=== PATIENT | female | born 1995 | race Two or more races ===

== ENCOUNTER → 2021-08-26 | Outpatient (REF) | payer OTHER | LOC: M WUC 12:04 | PROVIDERS: ATTEND Student in an Organized Health Care Education/Training Program | DX: J02.9 Acute pharyngitis, unspecified (principal) ==

== ENCOUNTER 2021-08-31 12:05 | Emergency (ER) | payer OTHER ==
[~2021-08-31] VITALS: Ht 167.6 cm; Wt 79.5 kg
[2021-08-31 14:54] LABS: BASO % 0.2 % (0.0-1.0); EOS % 0.2 % (0.0-3.0); HEMATOCRIT 38.6 % (36.0-47.0); HEMOGLOBIN 13.5 g/dl (12.0-15.5); LYMPH # 1.5 10^3/uL (1.5-5.0); LYMPH % 11.8 % (24.0-44.0); MEAN CORPUSCULAR HEMOGLOBIN 31.9 pg (27.0-33.0); MEAN CORPUSCULAR VOLUME 91.3 fl (80.0-96.0); MONO # 0.1 10^3/uL (0.0-0.8); NEUTROPHILS # 10.5 10^3/uL (1.5-8.5); PLATELET COUNT, AUTOMATED 289 10^3/uL (150-450); RED BLOOD COUNT 4.23 10^6/uL (4.00-5.40); WHITE BLOOD COUNT 12.2 10^3/uL (4.0-10.0)
[2021-08-31 15:15] LABS: BLOOD UREA NITROGEN 7 MG/DL (7-18); CALCIUM LEVEL 8.9 MG/DL (8.5-10.1); CARBON DIOXIDE LEVEL 26 MEQ/L (21-32); CHLORIDE LEVEL 108 MEQ/L (98-107); CREATININE FOR GFR 0.67 MG/DL (0.55-1.30); GLOMERULAR FILTRATION RATE > 60.0 (>60); GLUCOSE, FASTING 106 MG/DL (70-100); POTASSIUM SERUM 3.5 MEQ/L (3.5-5.1); SODIUM LEVEL 141 MEQ/L (136-145)
[2021-08-31] MEDS ORDERED: MEDR4PAK PO (15:57)
[2021-08-31 16:21] VITALS: BP 137/85
== END 2021-08-31 16:37 | disposition home or self-care (01) ==
LOC: M ED 12:05 → EDBD 12:05 → M ED 16:37
DX: J45.901 Unspecified asthma with (acute) exacerbation (principal)

== ENCOUNTER → 2021-12-31 | Outpatient (CLI) | payer OTHER ==
[~2021-12-31] MED LIST: MEDR4PAK PO
== END ==
LOC: M WUC 11:17
PROVIDERS: ATTEND Physician Assistant
DX: S93.602A Unspecified sprain of left foot, initial encounter (principal); X58.XXXA Exposure to other specified factors, initial encounter

== ENCOUNTER 2022-03-03 17:46 | Outpatient (CLI) | payer OTHER ==
[~2022-03-03] VITALS: Ht 167.6 cm; Wt 87.8 kg
[2022-03-03 18:09] VITALS: BP 131/74
[2022-03-03] MEDS ORDERED: PRENTAB9 PO (18:14)
[2022-03-03] MEDS ORDERED: ACET-897 PO (18:14)
[2022-03-03] MEDS ORDERED: ASPI81CH33 PO (18:15)
[2022-03-03] MEDS ORDERED: ONDA4TAB6 PO (18:15)
[2022-03-03 18:36] VITALS: BP 133/78
[2022-03-03] MEDS ORDERED: METOCLOPRAMIDE 10MG TAB PO ONE (18:45)
[2022-03-03] MEDS ORDERED: diphenhydrAMINE 25MG CAP PO ONE (18:45)
[2022-03-03] MEDS ORDERED: HOME MED LIST COMPLETE! XX SCH (18:55)
[2022-03-03 18:56] LABS: TOTAL PROTEIN,RANDOM URINE 21.2 MG/DL (0.0-14.0)
[2022-03-03 18:58] LABS: URIC ACID 2.6 MG/DL (3.1-7.8)
[2022-03-03 19:00] LABS: CREATININE,RANDOM URINE 136.7 MG/DL
[2022-03-03 19:02] LABS: ALBUMIN 2.8 G/DL (3.2-5.2); ALKALINE PHOSPHATASE 73 U/L (46-116); ALT/SGPT 12 U/L (7.0-40); AST/SGOT 11 U/L (<34); BILIRUBIN,TOTAL 0.2 MG/DL (0.3-1.2); BLOOD UREA NITROGEN 9 MG/DL (9-23); CALCIUM LEVEL 8.9 MG/DL (8.5-10.1); CARBON DIOXIDE LEVEL 22 MMOL/L (20-31); CHLORIDE LEVEL 105 MMOL/L (98-107); CREATININE FOR GFR 0.42 MG/DL (0.55-1.30); GLOMERULAR FILTRATION RATE > 60.0 (>60); GLUCOSE, FASTING 103 MG/DL (60-100); POTASSIUM SERUM 3.7 MMOL/L (3.5-5.1); SODIUM LEVEL 137 MMOL/L (136-145); TOTAL PROTEIN 6.4 G/DL (5.7-8.2)
[2022-03-03] MEDS ORDERED: FIORICET TAB PO ONE (19:45)
[2022-03-03] MEDS ORDERED: ONDANSETRON 4MG TAB PO ONE (19:45)
== END 2022-03-03 22:00 | disposition home or self-care (01) ==
LOC: M LDO 17:46
PROVIDERS: ATTEND Obstetrics & Gynecology
DX: O26.892 Other specified pregnancy related conditions, second trimester (principal); R51.9 Headache, unspecified; Z3A.22 22 weeks gestation of pregnancy; Z87.59 Personal history of other complications of pregnancy, childbirth and the puerperium; Z79.82 Long term (current) use of aspirin; Z79.899 Other long term (current) drug therapy
CPT/HCPCS: 36415; 59025; 76815; 80053; 82570; 84156; 84550; G0378; G0463

== ENCOUNTER 2022-05-03 20:34 | Outpatient (CLI) | payer OTHER ==
[~2022-05-03] VITALS: Ht 167.6 cm; Wt 93.7 kg
[~2022-05-03 20:34] MED LIST changes: +ACET-897 PO; +ASPI81CH33 PO; +ONDA4TAB6 PO; +PRENTAB9 PO
[2022-05-03 20:57] VITALS: BP 142/91
[2022-05-03] MEDS ORDERED: FOLTTAB9 PO (21:10)
[2022-05-03] MEDS ORDERED: GNP250TA9 PO (21:10)
[2022-05-03] MEDS ORDERED: HOME MED LIST COMPLETE! XX SCH (21:15)
[2022-05-03 21:20] LABS: APPEARANCE, URINE CLOUDY (CLEAR); BACTERIA, URINE AUTO 2+ (NEGATIVE); BILIRUBIN, URINE AUTO NEGATIVE (NEGATIVE); BLOOD, URINE BLOOD NEGATIVE (NEGATIVE); COLOR, URINE YELLOW (YELLOW); GLUCOSE, URINE (UA) AUTO NEGATIVE (NEGATIVE); KETONE, URINE AUTO TRACE mg/dL (NEGATIVE); LEUKOCYTE ESTERASE, URINE AUTO 3+ (NEGATIVE); MUCUS, URINE SMALL (NEGATIVE); NITRITE, URINE AUTO NEGATIVE (NEGATIVE); PROTEIN, URINE AUTO 1+ mg/dL (NEGATIVE); RBC, URINE AUTO 3 /HPF (0-3); SPECIFIC GRAVITY URINE AUTO 1.027 (1.002-1.035); SQUAMOUS EPITHELIAL CELL UR AU 54 /HPF (0-6); WBC, URINE AUTO 134 /HPF (0-3)
[2022-05-03 21:34] LABS: TOTAL PROTEIN,RANDOM URINE 42.7 MG/DL (0.0-14.0)
[2022-05-03 21:38] LABS: CREATININE,RANDOM URINE 163.4 MG/DL
[2022-05-03 21:47] LABS: HEMATOCRIT 31.4 % (36.0-47.0); HEMOGLOBIN 10.7 g/dl (12.0-15.5); MEAN CORPUSCULAR HEMOGLOBIN 30.8 pg (27.0-33.0); MEAN CORPUSCULAR HGB CONC 34.1 g/dl (32.0-36.5); MEAN CORPUSCULAR VOLUME 90.5 fl (80.0-96.0); PLATELET COUNT, AUTOMATED 286 10^3/uL (150-450); RED BLOOD COUNT 3.47 10^6/uL (4.00-5.40); WHITE BLOOD COUNT 11.3 10^3/uL (4.0-10.0)
[2022-05-03 21:54] VITALS: BP 133/76
[2022-05-03 21:57] LABS: URIC ACID 2.8 MG/DL (3.1-7.8)
[2022-05-03 21:59] LABS: LDH LACTATE DEHYDROGENASE 155 U/L (120-246)
[2022-05-03 22:00] LABS: ALBUMIN 2.6 G/DL (3.2-5.2); ALKALINE PHOSPHATASE 94 U/L (46-116); ALT/SGPT 16 U/L (7.0-40); AST/SGOT 13 U/L (<34); BILIRUBIN,TOTAL 0.2 MG/DL (0.3-1.2); BLOOD UREA NITROGEN 7 MG/DL (9-23); CALCIUM LEVEL 8.8 MG/DL (8.5-10.1); CARBON DIOXIDE LEVEL 22 MMOL/L (20-31); CHLORIDE LEVEL 109 MMOL/L (98-107); CREATININE FOR GFR 0.41 MG/DL (0.55-1.30); GLOMERULAR FILTRATION RATE > 60.0 (>60); GLUCOSE, FASTING 101 MG/DL (60-100); POTASSIUM SERUM 3.7 MMOL/L (3.5-5.1); SODIUM LEVEL 140 MMOL/L (136-145)
[2022-05-03] MEDS ORDERED: MAALOX 30 ML SUSP *UDC PO ONE (22:15)
== END 2022-05-03 22:31 | disposition home or self-care (01) ==
LOC: M LDO 20:34
PROVIDERS: ATTEND Obstetrics & Gynecology
DX: O26.893 Other specified pregnancy related conditions, third trimester (principal); Z3A.31 31 weeks gestation of pregnancy; R10.11 Right upper quadrant pain; O32.1XX0 Maternal care for breech presentation, not applicable or unspecified; O99.613 Diseases of the digestive system complicating pregnancy, third trimester; K80.20 Calculus of gallbladder without cholecystitis without obstruction; Z87.59 Personal history of other complications of pregnancy, childbirth and the puerperium; Z91.030 Bee allergy status
CPT/HCPCS: 36415; 59025; 80053; 81001; 82570; 83615; 84156; 84550; 85027; 87086; G0463

== ENCOUNTER 2022-05-19 13:05 | Outpatient (CLI) | payer OTHER ==
[~2022-05-19] VITALS: Ht 167.6 cm; Wt 96.2 kg
[~2022-05-19 13:05] MED LIST changes: +FOLTTAB9 PO; +GNP250TA9 PO
[2022-05-19 13:34] VITALS: BP 141/85
[2022-05-19 14:08] VITALS: BP 138/79
[2022-05-19 15:07] LABS: HEMATOCRIT 32.6 % (36.0-47.0); HEMOGLOBIN 10.9 g/dl (12.0-15.5); MEAN CORPUSCULAR HEMOGLOBIN 30.6 pg (27.0-33.0); MEAN CORPUSCULAR HGB CONC 33.4 g/dl (32.0-36.5); MEAN CORPUSCULAR VOLUME 91.6 fl (80.0-96.0); PLATELET COUNT, AUTOMATED 287 10^3/uL (150-450); RED BLOOD COUNT 3.56 10^6/uL (4.00-5.40); WHITE BLOOD COUNT 11.8 10^3/uL (4.0-10.0)
[2022-05-19 15:12] VITALS: BP 136/83
[2022-05-19 15:18] LABS: TOTAL PROTEIN,RANDOM URINE 13.9 MG/DL (0.0-14.0)
[2022-05-19 15:23] LABS: URIC ACID 3.2 MG/DL (3.1-7.8)
[2022-05-19 15:23] LABS: CREATININE,RANDOM URINE 68.9 MG/DL
[2022-05-19 15:25] LABS: LDH LACTATE DEHYDROGENASE 153 U/L (120-246)
[2022-05-19 15:26] LABS: ALT/SGPT 33 U/L (7.0-40); AST/SGOT 19 U/L (<34); BILIRUBIN,TOTAL 0.2 MG/DL (0.3-1.2); CREATININE FOR GFR 0.46 MG/DL (0.55-1.30); GLOMERULAR FILTRATION RATE > 60.0 (>60)
[2022-05-19 16:08] VITALS: BP 139/82
== END 2022-05-19 16:15 | disposition home or self-care (01) ==
LOC: M LDO 13:05
PROVIDERS: ATTEND Obstetrics & Gynecology
DX: O26.893 Other specified pregnancy related conditions, third trimester (principal); R03.0 Elevated blood-pressure reading, without diagnosis of hypertension; O99.613 Diseases of the digestive system complicating pregnancy, third trimester; Z3A.33 33 weeks gestation of pregnancy

== ENCOUNTER 2022-05-25 18:24 | Outpatient (CLI) | payer OTHER ==
[~2022-05-25] VITALS: Ht 167.6 cm; Wt 95.0 kg
[2022-05-25] MEDS ORDERED: HOME MED LIST COMPLETE! XX SCH (18:55)
[2022-05-25 18:56] VITALS: BP 119/70
[2022-05-25 19:37] VITALS: BP 118/70
[2022-05-25] MEDS ORDERED: diphenhydrAMINE 50MG/ML VIAL IV ONE (19:45)
[2022-05-25] MEDS ORDERED: METOCLOPRAMIDE 10MG TAB PO ONE (19:45)
[2022-05-25] MEDS ORDERED: diphenhydrAMINE 50MG CAP PO ONE (19:55)
[2022-05-25 20:39] VITALS: BP 131/80
[2022-05-25 21:23] VITALS: BP 142/87
[2022-05-25] MEDS ORDERED: ACETAMINOPHEN 500 MG TAB PO ONE (22:00)
[2022-05-25] MEDS ORDERED: ONDANSETRON 4MG TAB PO ONE (22:00)
[2022-05-25 22:53] LABS: HEMATOCRIT 35.9 % (36.0-47.0); HEMOGLOBIN 11.7 g/dl (12.0-15.5); MEAN CORPUSCULAR HEMOGLOBIN 29.8 pg (27.0-33.0); MEAN CORPUSCULAR HGB CONC 32.6 g/dl (32.0-36.5); MEAN CORPUSCULAR VOLUME 91.3 fl (80.0-96.0); PLATELET COUNT, AUTOMATED 311 10^3/uL (150-450); RED BLOOD COUNT 3.93 10^6/uL (4.00-5.40); WHITE BLOOD COUNT 14.3 10^3/uL (4.0-10.0)
[2022-05-25] MEDS ORDERED: oxyCODONE 5MG TAB PO ONE (23:00)
[2022-05-25 23:04] LABS: TOTAL PROTEIN,RANDOM URINE 35.3 MG/DL (0.0-14.0)
[2022-05-25 23:09] LABS: CREATININE,RANDOM URINE 190.8 MG/DL
[2022-05-25 23:13] LABS: URIC ACID 3.9 MG/DL (3.1-7.8)
[2022-05-25 23:15] LABS: LDH LACTATE DEHYDROGENASE 147 U/L (120-246)
[2022-05-25 23:16] LABS: ALT/SGPT 26 U/L (7.0-40); AST/SGOT 13 U/L (<34); BILIRUBIN,TOTAL 0.2 MG/DL (0.3-1.2); CREATININE FOR GFR 0.52 MG/DL (0.55-1.30); GLOMERULAR FILTRATION RATE > 60.0 (>60)
[2022-05-26] MEDS ORDERED: oxyCODONE 5MG TAB As Ordered ONE (01:07)
[2022-05-26 01:09] VITALS: BP 117/65
[2022-05-26 05:37] VITALS: BP 132/68
[2022-05-26 10:12] VITALS: BP 133/78
[2022-05-26 11:33] VITALS: BP 142/76
[2022-05-26 12:20] VITALS: BP 125/72
== END 2022-05-26 14:22 | disposition home or self-care (01) ==
LOC: M LDO 18:24
PROVIDERS: ATTEND Advanced Practice Midwife
DX: O26.893 Other specified pregnancy related conditions, third trimester (principal); R03.0 Elevated blood-pressure reading, without diagnosis of hypertension; R51.0 Headache with orthostatic component, not elsewhere classified; O99.343 Other mental disorders complicating pregnancy, third trimester; F32.A Depression, unspecified; Z87.59 Personal history of other complications of pregnancy, childbirth and the puerperium; Z3A.34 34 weeks gestation of pregnancy
CPT/HCPCS: 36415; 59025; 76815; 81001; 82247; 82565; 82570; 83615; 84156; 84450; 84460; 84550; 85027; 87086; G0463

== ENCOUNTER → 2022-06-01 | Outpatient (REF) | payer OTHER | LOC: M PLALAB 13:40 | PROVIDERS: ATTEND Advanced Practice Midwife | DX: Z36.85 Encounter for antenatal screening for Streptococcus B (principal); Z3A.36 36 weeks gestation of pregnancy | CPT/HCPCS: 59025; 87081; G0463 ==

== ENCOUNTER → 2022-06-03 | Outpatient (CLI) | payer OTHER | LOC: M RAD 14:53 | PROVIDERS: ATTEND Advanced Practice Midwife | DX: O13.3 Gestational [pregnancy-induced] hypertension without significant proteinuria, third trimester (principal) ==

== ENCOUNTER 2022-06-09 20:11 | Outpatient (CLI) | payer OTHER ==
[~2022-06-09] VITALS: Ht 167.6 cm; Wt 98.6 kg
[2022-06-09 20:25] VITALS: BP 136/86
== END 2022-06-09 21:45 | disposition home or self-care (01) ==
LOC: M LDO 20:11
PROVIDERS: ATTEND Specialist
DX: O36.8130 Decreased fetal movements, third trimester, not applicable or unspecified (principal); Z3A.36 36 weeks gestation of pregnancy

== ENCOUNTER 2022-06-15 15:17 | Inpatient (IN) | payer OTHER ==
[~2022-06-15] VITALS: Ht 167.6 cm; Wt 97.5 kg
[2022-06-15] MEDS ORDERED: HOME MED LIST COMPLETE! XX SCH (15:35)
[2022-06-15 15:37] VITALS: BP 121/68
[2022-06-15] MEDS ORDERED: LIDOCAINE 1% MDV 20ML VIAL INFIL PRN (16:00)
[2022-06-15] MEDS ORDERED: OXYTOCIN INJ 10UNITS/ML 1ML VIAL IM PRN (16:00)
[2022-06-15] MEDS ORDERED: OXYTOCIN DRIP 30 UNITS in IV 1 EA IV PRN ×4 (16:00)
[2022-06-15] MEDS ORDERED: TRANEXAMIC ACID INJection 1,000 MG in NS 100 ML IV PRN (16:00)
[2022-06-15] MEDS ORDERED: CARBOPROST TROMETHAMINE 250 MCG/ML AMP IM PRN (16:00)
[2022-06-15] MEDS: miSOPROStol 50MCG 1/2 TABLET PO SCH ×2 (16:08→20:29)
[2022-06-15 16:10] VITALS: BP 129/64
[2022-06-15 16:15] LABS: HEMATOCRIT 33.9 % (36.0-47.0); HEMOGLOBIN 11.2 g/dl (12.0-15.5); MEAN CORPUSCULAR HEMOGLOBIN 29.5 pg (27.0-33.0); MEAN CORPUSCULAR VOLUME 89.2 fl (80.0-96.0); PLATELET COUNT, AUTOMATED 326 10^3/uL (150-450); WHITE BLOOD COUNT 10.4 10^3/uL (4.0-10.0)
[2022-06-15 16:43] LABS: URIC ACID 4.2 MG/DL (3.1-7.8)
[2022-06-15 16:45] LABS: LDH LACTATE DEHYDROGENASE 172 U/L (120-246)
[2022-06-15 16:46] LABS: ALT/SGPT 21 U/L (7.0-40); AST/SGOT 19 U/L (<34); BILIRUBIN,TOTAL 0.2 MG/DL (0.3-1.2); CREATININE FOR GFR 0.48 MG/DL (0.55-1.30); GLOMERULAR FILTRATION RATE > 60.0 (>60)
[2022-06-15 17:22] VITALS: BP 122/68
[2022-06-15 18:24] VITALS: BP 122/70
[2022-06-15 19:04] VITALS: BP 124/60
[2022-06-15 19:59] VITALS: BP 127/69
[2022-06-15] MEDS ORDERED: OXYTOCIN DRIP 30 UNITS in IV 1 EA IV SCH (23:25)
[2022-06-16] VITALS (46 sets, daily range): BP systolic 106–158; BP diastolic 58–85
[2022-06-16] MEDS: LR 1,000 ML IV SCH ×3 (01:06→09:44)
[2022-06-16] MEDS ORDERED: ePHEDrine SULFATE 25 MG/5 ML(5MG/ML) SYRINGE IVP PRN (07:15)
[2022-06-16] MEDS ORDERED: LR 500 ML IV PRN (07:15)
[2022-06-16] MEDS ORDERED: ONDANSETRON 4MG 2ML VIAL IV PRN (07:15)
[2022-06-16] MEDS ORDERED: EPIDURAL/PCA KEYS XX PRN (07:15)
[2022-06-16] MEDS ORDERED: diphenhydrAMINE 50MG/ML VIAL IV PRN (07:15)
[2022-06-16] MEDS ORDERED: FENTANYL/ROPIVACAINE/NACL BAG 100 ML EPIDURAL SCH (07:15)
[2022-06-16] MEDS ORDERED: NALOXONE INJ 0.4MG/1ML VIAL IV PRN (07:15)
[2022-06-16] MEDS ORDERED: IBUPROFEN 600MG TAB PO PRN (12:10)
[2022-06-16] MEDS ORDERED: DOCUSATE SODIUM 100MG CAPSULE PO PRN (12:10)
[2022-06-16] MEDS ORDERED: DIBUCAINE 1% OINTMENT 30GM TOP PRN (12:10)
[2022-06-16] MEDS ORDERED: METHYLERGONOVINE MALEATE 0.2 MG TAB PO PRN (12:10)
[2022-06-16] MEDS ORDERED: RHOGAM 300MCG (1500IU) INJ IM SCH (12:10)
[2022-06-16] MEDS ORDERED: OXYTOCIN DRIP 30 UNITS in IV 1 EA IV ONE (12:15)
[2022-06-16] MEDS ORDERED: OXYTOCIN 30UNITS IN 0.9% NaCl 500ML IV BAG As Ordered ONE (12:16)
[2022-06-16 14:28] LABS: HIV 1&2 SCREEN ATELLICA NEGATIVE (NEGATIVE)
[2022-06-16] MEDS: ACETAMINOPHEN 500 MG TAB PO PRN (17:42)
[2022-06-17 06:00] VITALS: BP 113/66
[2022-06-17 06:44] LABS: HEMATOCRIT 28.8 % (36.0-47.0); HEMOGLOBIN 9.7 g/dl (12.0-15.5); MEAN CORPUSCULAR HEMOGLOBIN 30.5 pg (27.0-33.0); MEAN CORPUSCULAR HGB CONC 33.7 g/dl (32.0-36.5); MEAN CORPUSCULAR VOLUME 90.6 fl (80.0-96.0); PLATELET COUNT, AUTOMATED 252 10^3/uL (150-450); RED BLOOD COUNT 3.18 10^6/uL (4.00-5.40); WHITE BLOOD COUNT 10.9 10^3/uL (4.0-10.0)
[2022-06-17] MEDS: ACETAMINOPHEN 500 MG TAB PO PRN (08:01)
[2022-06-17] MEDS ORDERED: PRENATAL VITAMINS CHEWABLE TABLET PO SCH ×2 (09:00)
[2022-06-18] MEDS ORDERED: MEASLES,MUMPS,RUBELLA VACCINE INJ (MMR-II) SC.IMMUN ONE (09:00)
== END 2022-06-17 15:26 | disposition home or self-care (01) | DRG 807 ==
LOC: M LDI 15:17 → M OBS 06-16 15:00
PROVIDERS: ADMIT Advanced Practice Midwife; ATTEND Obstetrics & Gynecology
PROC: 3E0P7GC Introduction of Other Therapeutic Substance into Female Reproductive, Via Natural or Artificial Opening (ICD-10-PCS; 2022-06-15)
PROC: 10E0XZZ Delivery of Products of Conception, External Approach (ICD-10-PCS; principal; 2022-06-16)
PROC: 10907ZC Drainage of Amniotic Fluid, Therapeutic from Products of Conception, Via Natural or Artificial Opening (ICD-10-PCS; 2022-06-16)
DX: O13.4 Gestational [pregnancy-induced] hypertension without significant proteinuria, complicating childbirth (principal); Z37.0 Single live birth; Z3A.37 37 weeks gestation of pregnancy; Z91.030 Bee allergy status

== ENCOUNTER → 2023-03-23 | Outpatient (CLI) | payer OTHER ==
[2023-03-23 17:41] LABS: BASO # 0.1 10^3/uL (0.0-0.2); BASO % 0.6 % (0.0-1.0); EOS # 0.2 10^3/uL (0.0-0.5); EOS % 1.9 % (0.0-3.0); HEMOGLOBIN 13.2 g/dl (12.0-15.5); LYMPH # 2.9 10^3/uL (1.5-5.0); MEAN CORPUSCULAR HEMOGLOBIN 32.2 pg (27.0-33.0); MEAN CORPUSCULAR HGB CONC 34.7 g/dl (32.0-36.5); MEAN CORPUSCULAR VOLUME 92.7 fl (80.0-96.0); MONO # 0.4 10^3/uL (0.0-0.8); MONO % 5.3 % (2.0-8.0); NEUTROPHILS # 4.5 10^3/uL (1.5-8.5); PLATELET COUNT, AUTOMATED 305 10^3/uL (150-450); WHITE BLOOD COUNT 8.1 10^3/uL (4.0-10.0)
[2023-03-23 17:59] LABS: FREE T4 1.03 NG/DL (0.89-1.76)
[2023-03-23 18:00] LABS: PROLACTIN 5.18 NG/ML; THYROID STIMULATING HORMONE 1.099 uIU/ML (0.55-4.78)
[2023-03-23 18:12] LABS: HEMOGLOBIN A1c 4.7 % (4.0-6.0)
[2023-03-29 08:07] LABS: 17 HYDROXY PROGESTERONE 63 ng/dL (.); TESTOSTERONE FREE (DIRECT) 2.3 pg/mL (0.0-4.2)
== END ==
LOC: M PLALAB 16:04
PROVIDERS: ATTEND Nurse Practitioner Family
DX: N93.9 Abnormal uterine and vaginal bleeding, unspecified (principal); N73.9 Female pelvic inflammatory disease, unspecified
CPT/HCPCS: 36415; 82627; 83036; 83498; 84146; 84402; 84403; 84439; 84443; 85025; 87070; 96372; G0463; J1050

== ENCOUNTER → 2023-06-21 | Outpatient (REF) | payer OTHER | LOC: M SFHCWAGY 09:03 | PROVIDERS: ATTEND Nurse Practitioner Family | DX: Z12.4 Encounter for screening for malignant neoplasm of cervix (principal); N73.9 Female pelvic inflammatory disease, unspecified | CPT/HCPCS: 87070; 87077; 87186; 87624; G0123 ==

== ENCOUNTER → 2024-04-25 | Outpatient (CLI) | payer OTHER ==
[~2024-04-25] MED LIST changes: +ONDA-282 PO; -ONDA4TAB6 PO
== END ==
LOC: M WUC 11:07
PROVIDERS: ATTEND Physician Assistant
DX: M79.644 Pain in right finger(s) (principal)